=== PATIENT | male | born 1930 | race Caucasian/White ===

== ENCOUNTER 2019-08-19 09:40 | Inpatient (IN) | payer OTHER ==
[~2019-08-19] VITALS: Ht 175.3 cm; Wt 81.9 kg
[2019-08-19 10:31] LABS: Eosinophils # (auto) 0 uL; Eosinophils % (auto) 0.1 % (0.0-7.0); Red Blood Cells 3.31 10^6/uL (4.5-5.90); Red Cell Distribution Width 16.5 % (11.8-14.3); White Blood Cell 11.8 10^3/uL (4.4-10.8)
[2019-08-19 10:32] LABS: Basophils # (auto) 0.1 uL; Basophils % (auto) 0.6 % (0.0-2.0); Hematocrit 34.4 % (41.0-53.0); Hemoglobin 11.7 g/dL (13.5-17.5); Lymphocytes # (auto) 0.4 uL; Mean Corpuscular Hemoglobin 35.2 pg (28.0-32.0); Mean Corpuscular Hgb Conc. 33.9 g/dL (32.0-36.0); Mean Corpuscular Volume 103.7 fL (80.0-100.0); Monocytes # (auto) 0.5 uL; Monocytes % (auto) 4.1 % (0.0-12.0); Neutrophils # (auto) 10.9 uL; Neutrophils % (auto) 92.2 % (37.0-80.0); Platelet Count (auto) 111 10^3/uL (140-450)
[2019-08-19 10:48] LABS: INR 1.82 (0.9-1.15); Partial Thromboplastin Time 33.9 sec (23.64-32.05)
[2019-08-19 10:54] LABS: Albumin 3.6 g/dL (3.4-5.0); BUN/Creatinine Ratio 18.1; Calcium 9.6 mg/dL (8.5-10.1); Potassium 4.5 mmol/L (3.5-5.1)
[2019-08-19 10:56] LABS: Total Protein 6.7 g/dL (6.4-8.2)
[2019-08-19 11:30] LABS: CRP High Sensitivity 0.466 mg/dL (< 0.3)
[2019-08-19] MEDS ORDERED: POTASSIUM (15:04)
[2019-08-19] MEDS ORDERED: ALLO300T2 (15:04)
[2019-08-19] MEDS ORDERED: SIMV-13 (15:04)
[2019-08-19] MEDS ORDERED: WARF4TAB33 (15:04)
[2019-08-19] MEDS ORDERED: IRBE300T46 (15:04)
[2019-08-19] MEDS ORDERED: BUME1TAB3 (15:04)
[2019-08-19] MEDS ORDERED: LEVO25TA49 (15:04)
[2019-08-19 15:37] LABS: Urine Bacteria NONE SEEN /hpf (None Seen); Urine Blood TRACE /uL (Negative); Urine Hyaline Cast FEW /lpf (0 - 2); Urine Mucus FEW (None Seen); Urine Specific Gravity 1.019 (1.001-1.035); Urine WBC 7 /hpf (0 - 3)
[2019-08-19] MEDS ORDERED: hydrALAZINE HCL 20 MG/ML VL IV PRN (16:15)
[2019-08-19] MEDS ORDERED: ACETAMINOPHEN 500 MG TAB PO PRN (16:15)
[2019-08-19] MEDS ORDERED: HYDROcodone-ACET 5/325MG TAB PO PRN (16:15)
[2019-08-19] MEDS ORDERED: NITROGLYCERIN 0.4 MG SL TAB SL PRN (16:15)
[2019-08-19] MEDS ORDERED: ONDANSETRON HCL 4 MG/2 ML VIAL IV PRN (16:15)
[2019-08-19] MEDS ORDERED: MORPHINE SULF INJ 2 MG/ML SYRINGE 1ML IV PRN (16:15)
[2019-08-19] MEDS ORDERED: LORazepam 2MG/ML-1ML VIAL IV ONE (16:45)
[2019-08-19] MEDS ORDERED: LORazepam 2MG/ML-1ML VIAL ONE (16:45)
[2019-08-19] MEDS ORDERED: BUMETANIDE 1mg/4ml VIAL (0.25mg/ml) IV SCH (18:00)
[2019-08-19] MEDS ORDERED: HALOPERIDOL LACTATE 5 MG/ML INJ VIAL IM ONE (20:00)
[2019-08-19] MEDS: DOCUSATE SOD 100 MG CAP PO SCH (23:13)
[2019-08-19] MEDS: ATORVASTATIN 20 MG TAB PO SCH (23:14)
[2019-08-19] MEDS: CARVEDILOL 3.125 MG TAB PO SCH (23:14)
[2019-08-20 06:11] LABS: Basophils # (auto) 0 uL; Basophils % (auto) 0.3 % (0.0-2.0); Eosinophils # (auto) 0.2 uL; Hemoglobin 11.1 g/dL (13.5-17.5); Lymphocytes # (auto) 0.9 uL; Monocytes # (auto) 0.8 uL
[2019-08-20 06:13] LABS: Eosinophils % (auto) 2.7 % (0.0-7.0); Hematocrit 31.7 % (41.0-53.0); Lymphocytes % (auto) 9.2 % (10.0-50.0); Mean Corpuscular Hemoglobin 36.1 pg (28.0-32.0); Mean Corpuscular Volume 103.2 fL (80.0-100.0); Monocytes % (auto) 8.4 % (0.0-12.0); Neutrophils # (auto) 7.4 uL; Neutrophils % (auto) 79.4 % (37.0-80.0); Platelet Count (auto) 99 10^3/uL (140-450); Red Blood Cells 3.07 10^6/uL (4.5-5.90); Red Cell Distribution Width 16.5 % (11.8-14.3); White Blood Cell 9.4 10^3/uL (4.4-10.8)
[2019-08-20 06:25] LABS: Potassium 4.1 mmol/L (3.5-5.1)
[2019-08-20 06:31] LABS: BUN/Creatinine Ratio 18.3; Calcium 9.6 mg/dL (8.5-10.1)
[2019-08-20] MEDS ORDERED: BUMETANIDE 2.5mg/10ml (0.25 mg/ml) INJ IV ONE (07:15)
[2019-08-20 09:00] VITALS: BP 152/85
[2019-08-20] MEDS ORDERED: ENOXAPARIN SOD 40 MG/0.4 ML SYRINGE SC ONE (11:15)
[2019-08-20] MEDS: LEVOTHYROXINE SODIUM 25 MCG TAB PO SCH (11:36)
[2019-08-20] MEDS: ALLOPURINOL 300 MG TAB PO SCH (11:36)
[2019-08-20] MEDS: CARVEDILOL 3.125 MG TAB PO SCH ×2 (11:36→22:47)
[2019-08-20] MEDS: ASPirin-EC 81 mg tab PO SCH (11:37)
[2019-08-20] MEDS: BENAZEPRIL HCL 10 MG TAB PO SCH (11:37)
[2019-08-20] MEDS: DOCUSATE SOD 100 MG CAP PO SCH ×2 (11:37→22:47)
[2019-08-20 13:00] VITALS: BP 91/56
[2019-08-20 17:00] VITALS: BP 139/79
[2019-08-20 22:00] VITALS: BP 142/82
[2019-08-20] MEDS: ATORVASTATIN 20 MG TAB PO SCH (22:48)
[2019-08-21 06:10] VITALS: BP 121/56
[2019-08-21] MEDS: LEVOTHYROXINE SODIUM 25 MCG TAB PO SCH (06:30)
[2019-08-21 08:00] VITALS: BP 133/76
[2019-08-21 09:00] VITALS: BP 133/76
[2019-08-21] MEDS: DOCUSATE SOD 100 MG CAP PO SCH ×2 (10:50→21:36)
[2019-08-21] MEDS: CARVEDILOL 3.125 MG TAB PO SCH ×2 (10:51→21:37)
[2019-08-21] MEDS: ASPirin-EC 81 mg tab PO SCH (10:51)
[2019-08-21] MEDS: BENAZEPRIL HCL 10 MG TAB PO SCH (10:52)
[2019-08-21] MEDS: ALLOPURINOL 300 MG TAB PO SCH (10:52)
[2019-08-21] MEDS: ENOXAPARIN SOD 40 MG/0.4 ML SYRINGE SC SCH (10:53)
[2019-08-21 13:00] VITALS: BP 125/62
[2019-08-21 17:00] VITALS: BP 130/70
[2019-08-21] MEDS: FUROSEMIDE 20 MG/2 ML VIAL IV SCH (18:08)
--- NOTE | 2019-08-21 19:40 | NUR ---
OPENING SHIFT NOTE RECEIVED REPORT FROM DAYSHIFT RN. PATIENT LYING IN BED WATCHING TELEVISION. SITTER AT BEDSIDE FOR SAFETY. NO S/S OF DISTRESS OR SOB. NO PAIN NOTED OR REPORTED. PATIENT A/O X3, BEDREST. BED LOCKED IN LOW POSITION, CALL LIGHT WITHIN REACH, WILL CONTINUE TO MONITOR PATIENT Q1HR AND PRN.
[2019-08-21] MEDS: ATORVASTATIN 20 MG TAB PO SCH (21:37)
[2019-08-21 22:00] VITALS: BP 113/61
[2019-08-22 05:00] VITALS: BP 143/81
[2019-08-22] MEDS: FUROSEMIDE 20 MG/2 ML VIAL IV SCH ×2 (05:38→17:40)
[2019-08-22] MEDS: LEVOTHYROXINE SODIUM 25 MCG TAB PO SCH (06:44)
[2019-08-22 06:46] LABS: Hemoglobin 11.8 g/dL (13.5-17.5); Mean Corpuscular Hgb Conc. 34.7 g/dL (32.0-36.0); Red Blood Cells 3.34 10^6/uL (4.5-5.90)
[2019-08-22 06:49] LABS: Basophils # (auto) 0.1 uL; Basophils % (auto) 0.9 % (0.0-2.0); Eosinophils # (auto) 0.3 uL; Eosinophils % (auto) 4.6 % (0.0-7.0); Hematocrit 34.1 % (41.0-53.0); Lymphocytes # (auto) 1.1 uL; Lymphocytes % (auto) 17.5 % (10.0-50.0); Mean Corpuscular Hemoglobin 35.4 pg (28.0-32.0); Monocytes # (auto) 0.4 uL; Monocytes % (auto) 6.9 % (0.0-12.0); Neutrophils # (auto) 4.4 uL; Neutrophils % (auto) 70.1 % (37.0-80.0); Nucleated Red Blood Cells % 0.1 %; Platelet Count (auto) 104 10^3/uL (140-450); Red Cell Distribution Width 15.8 % (11.8-14.3); White Blood Cell 6.3 10^3/uL (4.4-10.8)
[2019-08-22 06:58] LABS: INR 1.48 (0.9-1.15); Partial Thromboplastin Time 33.5 sec (23.64-32.05)
[2019-08-22 07:00] LABS: Potassium 3.8 mmol/L (3.5-5.1)
[2019-08-22 07:07] LABS: BUN/Creatinine Ratio 28.7; Calcium 9.2 mg/dL (8.5-10.1)
--- NOTE | 2019-08-22 07:16 | NUR ---
CRITICAL VALUE OF WBC 52.2 REPORTED TO QAMAR MACIEL. POSITIVE BLOOD CULTURES REPORTED TO RAHEEM ON PRIOR SHIFT WITH RESULTING ORDER OF VANCOMYCIN PER PHARMACY TO DOSE. Addendum: 08/22/19 at 1120 by BENJAMIN BROWN RN INACCURATE CRITICAL VALUE REPORT FROM LAB.
[2019-08-22 08:00] VITALS: BP 130/65
[2019-08-22] MEDS ORDERED: VANCOMYCIN PER PHARMACY 0 MG IV SCH (08:00)
[2019-08-22 08:32] VITALS: BP 130/65
[2019-08-22] MEDS: ASPirin-EC 81 mg tab PO SCH (09:58)
[2019-08-22] MEDS: DOCUSATE SOD 100 MG CAP PO SCH ×2 (09:59→21:35)
[2019-08-22] MEDS: CARVEDILOL 3.125 MG TAB PO SCH ×2 (09:59→21:23)
[2019-08-22] MEDS: ALLOPURINOL 300 MG TAB PO SCH (09:59)
[2019-08-22] MEDS: BENAZEPRIL HCL 10 MG TAB PO SCH (10:00)
[2019-08-22] MEDS: ENOXAPARIN SOD 40 MG/0.4 ML SYRINGE SC SCH (10:00)
[2019-08-22] MEDS: VANCOMYCIN 1GM/250ML 250 ML IV SCH (10:05)
--- NOTE | 2019-08-22 11:09 | NUR ---
ADDITIONAL CONTACT (PRASAD RUIZ)
[2019-08-22 13:00] VITALS: BP 125/72
--- NOTE | 2019-08-22 16:55 | NUR ---
Discharge planning per SS consult, patient has orders for SNF placement. Placed a call to [facility], spoke with Mary, and she advised she would send me a list of contracted facilities. I called the listed facilities and was advised that none of them were contracted. Placed a call to his POA Patel Rodriguez, and left a message for a return call. he called back and will follow up with me tomorrow with his plan post dc.
[2019-08-22 17:00] VITALS: BP 128/79
[2019-08-22] MEDS: WARFARIN SODIUM 2 MG TAB PO SCH (17:41)
--- NOTE | 2019-08-22 19:40 | NUR ---
OPENING SHIFT NOTE RECEIVED REPORT FROM DAYSHIFT RN. PATIENT LYING IN BED WITH EYES CLOSED. SITTER AT BEDSIDE FOR SAFETY. NO S/S OF DISTRESS OR SOB. NO PAIN NOTED OR REPORTED. PATIENT A/O X2, BEDREST. BED LOCKED IN LOW POSITION, CALL LIGHT WITHIN REACH, WILL CONTINUE TO MONITOR PATIENT Q1HR AND PRN.
[2019-08-22 21:30] VITALS: BP 93/51
[2019-08-22] MEDS: ATORVASTATIN 20 MG TAB PO SCH (21:36)
[2019-08-23] MEDS: VANCOMYCIN 1GM/250ML 250 ML IV SCH ×2 (02:54→21:00)
[2019-08-23 05:14] VITALS: BP 96/51
--- NOTE | 2019-08-23 05:30 | NUR ---
SPOKE WITH HOSPITALIST UPDATED PIN DRAFTING MACHINE OPERATOR RAJEEV ON PATIENT STATUS AND DECREASED BLOOD PRESSURE. ORDERS TO HOLD BENAZEPRIL AND CONTINUE TO ADMINISTER COREG. WILL ENDORSE TO ARLEEN RN,
[2019-08-23] MEDS: FUROSEMIDE 20 MG/2 ML VIAL IV SCH (05:53)
[2019-08-23] MEDS: LEVOTHYROXINE SODIUM 25 MCG TAB PO SCH (05:57)
[2019-08-23 08:00] VITALS: BP 106/66
[2019-08-23] MEDS: BENAZEPRIL HCL 10 MG TAB PO SCH (09:22)
[2019-08-23] MEDS: DOCUSATE SOD 100 MG CAP PO SCH ×2 (09:33→23:14)
[2019-08-23] MEDS: CARVEDILOL 3.125 MG TAB PO SCH (09:34)
[2019-08-23] MEDS: ALLOPURINOL 300 MG TAB PO SCH (09:34)
[2019-08-23] MEDS: ASPirin-EC 81 mg tab PO SCH (09:34)
[2019-08-23 10:42] LABS: INR 1.51 (0.9-1.15); Partial Thromboplastin Time 34.9 sec (23.64-32.05)
[2019-08-23] MEDS ORDERED: SODIUM CHLORIDE 0.9% 250 ML IV ONE (12:00)
[2019-08-23] MEDS ORDERED: SODIUM CHLORIDE 0.9% 1,000 ML IV SCH (12:00)
[2019-08-23 13:00] VITALS: BP 77/51
--- NOTE | 2019-08-23 15:54 | NUR ---
assessment Patient is a 88 year old male who is not answering correctly. Per patients radha Sweeney prior to admission patient did live home alone and was independent. Per Patel the last time he came to visit was 4 weeks ago. Patel lives in [place] and comes out often to see patient. Patel is patients POA. Patel and patient have been planning for patient to move to [place] soon. Per Patel this is new confusion for patient. Per Patel patients PCP is Dr Faulkner. Per Patel patient has no need for DME. Per Patel he agrees to patient going to rehab on discharge. Patients post discharge plan after SNF is to return home with Patel. Patel verbalized understanding and agreed to discharge plan to SNF. Addendum: 08/23/19 at 1559 by Gaby LUCIANO Amended: Links added.
[2019-08-23 17:00] VITALS: BP 105/63
[2019-08-23] MEDS: WARFARIN SODIUM 2 MG TAB PO SCH (17:03)
--- NOTE | 2019-08-23 19:30 | NUR ---
Opening Shift Note Pt is resting in bed with resp rate even and unlabored. No s/s of any distress noted at this time. Sitter at bedside 1:1 care for pt safety. POC discussed with pt and pt verbalizes understanding. Bed is low, wheels are locked, and call light is with in reach. Bed alarm is set.
[2019-08-23 21:00] VITALS: BP 121/73
[2019-08-23] MEDS: ATORVASTATIN 20 MG TAB PO SCH (23:14)
[2019-08-24 05:00] VITALS: BP 128/77
[2019-08-24] MEDS: LEVOTHYROXINE SODIUM 25 MCG TAB PO SCH (06:34)
[2019-08-24 07:17] LABS: Basophils # (auto) 0 uL; Mean Corpuscular Hgb Conc. 34.2 g/dL (32.0-36.0); Monocytes # (auto) 0.7 uL
[2019-08-24 07:19] LABS: Basophils % (auto) 0.3 % (0.0-2.0); Eosinophils # (auto) 0.4 uL; Eosinophils % (auto) 5.3 % (0.0-7.0); Hematocrit 34.3 % (41.0-53.0); Hemoglobin 11.7 g/dL (13.5-17.5); Lymphocytes % (auto) 14.8 % (10.0-50.0); Mean Corpuscular Hemoglobin 35.5 pg (28.0-32.0); Mean Corpuscular Volume 103.6 fL (80.0-100.0); Monocytes % (auto) 10.4 % (0.0-12.0); Neutrophils # (auto) 4.9 uL; Neutrophils % (auto) 69.2 % (37.0-80.0); Nucleated Red Blood Cells % 0.1 %; Platelet Count (auto) 101 10^3/uL (140-450); Red Blood Cells 3.31 10^6/uL (4.5-5.90); Red Cell Distribution Width 16.1 % (11.8-14.3)
[2019-08-24 07:28] LABS: BUN/Creatinine Ratio 31.9; Calcium 9.2 mg/dL (8.5-10.1); Potassium 3.7 mmol/L (3.5-5.1)
--- NOTE | 2019-08-24 07:40 | NUR ---
Opening Note Received report from military administrative technician RN. Patient is awake, alert and oriented x1. Patient states he does not know where he is at or why he is here. Patient is on room air, respirations even and unlabored. Patient denies pain at this time. Reviewed plan of care with patient. Bed in low and locked position, call light within reach. Will continue to monitor Q1 hour and PRN. Sitter at bedside for safety.
[2019-08-24 09:00] VITALS: BP 150/72
[2019-08-24] MEDS: ALLOPURINOL 300 MG TAB PO SCH (09:44)
[2019-08-24] MEDS: ASPirin-EC 81 mg tab PO SCH (09:44)
[2019-08-24] MEDS: DOCUSATE SOD 100 MG CAP PO SCH ×2 (09:45→23:35)
[2019-08-24] MEDS ORDERED: ENOXAPARIN SOD 40 MG/0.4 ML SYRINGE SC SCH (10:00)
--- NOTE | 2019-08-24 11:20 | NUR ---
at bedside Updating patient on plan of care. States patient is to be transferred to higher level of care. Will continue to monitor.
[2019-08-24 12:40] VITALS: BP 139/60
--- NOTE | 2019-08-24 13:04 | NUR ---
Dr. Dang at bedside Updating patient on plan of care. Patient to be discharged to SNF. Will continue to monitor Q1 hour and PRN.
[2019-08-24 14:15] LABS: INR 1.48 (0.9-1.15)
--- NOTE | 2019-08-24 15:00 | NUR ---
Visitors at bedside Provided contact information. [facility] . States they would like to be contacted when patient is to be transferred.
[2019-08-24] MEDS ORDERED: WARFARIN SODIUM 5 MG TAB PO ONE (17:00)
--- NOTE | 2019-08-24 17:59 | NUR ---
Discharge planning per SS consult, patient has orders to dc to SNF. Referral sent to multiple facilities since 08.22.19, and most were coming back as non contracted even the ones the health plan had provided. Spoke with Lorri Lacey [phone] today, and was provided additional facilities. Referral faxed to [facility] at [phone], placed a follow up call, spoke with Purvi and was advised they can accept patient, but does not have a bed today, but is also pending a discharge and anticipates to have a bed possibly Sat 10.5 or Sun 10.6. I will be restaurant front manager for assistance regarding transfer if bed is available over the weekend. Please have me paged. Placed a follow up call to his grandson Patel Rodriguez, and advised him of the dc plan, he verbalized understanding, and wants to transition this patient to [place] after dc from SNF stay.
--- NOTE | 2019-08-24 19:20 | NUR ---
Closing Note Report given to skid machine operator RN. No signs or symptoms of distress noted at this time. Sitter at bedside for safety.
[2019-08-24 21:51] VITALS: BP 152/71
[2019-08-24] MEDS: ATORVASTATIN 20 MG TAB PO SCH (23:35)
[2019-08-25 05:05] VITALS: BP 136/70
[2019-08-25 06:22] LABS: INR 1.61 (0.9-1.15)
[2019-08-25] MEDS: LEVOTHYROXINE SODIUM 25 MCG TAB PO SCH (07:07)
--- NOTE | 2019-08-25 07:40 | NUR ---
Opening Note Received report from night order selector RN. Patient is awake, alert and oriented x1. Patient is on room air, respirations even and unlabored. Patient denies pain at this time. Reviewed plan of care with patient. Bed in low and locked position, call light within reach. Will continue to monitor Q1 hour and PRN. Sitter at bedside for safety.
[2019-08-25] MEDS: ALLOPURINOL 300 MG TAB PO SCH (09:00)
[2019-08-25] MEDS: DOCUSATE SOD 100 MG CAP PO SCH ×2 (09:00→23:16)
[2019-08-25] MEDS: ASPirin-EC 81 mg tab PO SCH (09:01)
--- NOTE | 2019-08-25 09:06 | NUR ---
Wound photo taken Patient has blister, erythema and scratch to left hip. Photo taken for reference. Will continue to monitor Q1 hour and PRN.
--- NOTE | 2019-08-25 09:40 | NUR ---
Physical Therapy Patient ambulated with PT around unit. Patient back to bed, tolerated well. Will continue to monitor Q1 hour and PRN.
[2019-08-25 13:00] VITALS: BP 140/80
--- NOTE | 2019-08-25 15:21 | NUR ---
Nutrition Follow-up Notes Wt.: 83.3 kg as of yesterday. Pt's with PT and sitter at bedside at bedside during rounds this morning. Pt's no signs of distress noted earlier, currently on Cardiac: 2 gms Na, Low Chol, Low Fat diet, no record of food intake in last 2 days, however pt tolerates oral diet and eating well, per sitter. Est. Needs : 1650 to 2100 kcal (20-25 kcal/kgBW), 66 to 8 gms pro (0.8-1.0 gm/kgBW). Will continue to monitor pertinent labs and reassess nutrient need prn Labs: No new labs today; 08/24/19 Gluc 108 H, BUN 38 H; Trop I 0.257 H Skin: Dakota scale17, mod risk, skin intact per clicker operator. GI: Pt had 1 BM 08/20/19 per clicker operator. PES: Altered nutrition related lab values r/t current/chronic medical condition aeb hyperglycemia, elev. BUN and Trop I levels. Will continue to monitor PO intake, skin status, pertinent labs and weight trend. F/u in 3 to 5 days. Rec.: 1.) Continue close supervision and feeding assistance prn during meals. 2.) Consider regular monitoring and recording of pt's food intake in [employer]. 3.) Refer pt to RD for further nutrition education and weight monitoring upon discharge. 4.) Continue current plan of care.
[2019-08-25 17:00] VITALS: BP 185/91
[2019-08-25] MEDS ORDERED: WARFARIN SODIUM 5 MG TAB PO ONE (17:00)
--- NOTE | 2019-08-25 19:31 | NUR ---
Closing Note Report given to night club manager RN. No signs or symptoms of distress noted at this time. Sitter at bedside for safety
[2019-08-25 21:43] VITALS: BP 127/73
[2019-08-25] MEDS: ATORVASTATIN 20 MG TAB PO SCH (23:16)
[2019-08-26 04:55] VITALS: BP 150/84
--- NOTE | 2019-08-26 04:57 | NUR ---
Continuation of Care Assumed care of patient, eyes closed, respirations even and unlabored, appears asleep. Bed in lowest locked position, side rails up x2, call light within reach, sitter at bedside. No S/S of distress/SOB or pain. Instructed on POC and to call for assist PRN, will continue to monitor for changes Q1hr and PRN.
--- NOTE | 2019-08-26 05:00 | NUR ---
Endorsed care of pt to Anusha KELLER.
[2019-08-26 06:22] LABS: INR 1.89 (0.9-1.15)
--- NOTE | 2019-08-26 06:30 | NUR ---
Hypertension Blood pressure 150/84, will administer Hydralazine as ordered and continue to monitor patient.
[2019-08-26] MEDS: LEVOTHYROXINE SODIUM 25 MCG TAB PO SCH (06:35)
--- NOTE | 2019-08-26 07:05 | NUR ---
Closing Note Patient lying in bed, eyes closed, respirations even and unlabored, appears asleep, but awakens to name and touch. Bed in lowest locked position, side rails up x2, call light within reach, sitter at bedside. No s/s of distress. Dayshift RN made aware of patient's hypertension and care endorsed.
--- NOTE | 2019-08-26 07:30 | NUR ---
Opening Shift Note RECEIVED REPORT FROM NOC RN. Assumed care of patient, ASLEEP. No S/S of distress/SOB or pain. BED IN LOWEST, LOCKED POSITION WITH SIDERAILS UP x2 AND CALL LIGHT WITHIN REACH AND SITTER AT BEDSIDE. Will continue to monitor for changes Q1hr and PRN.
[2019-08-26 08:15] VITALS: BP 134/84
[2019-08-26 09:00] VITALS: BP 134/81
[2019-08-26] MEDS: DOCUSATE SOD 100 MG CAP PO SCH ×2 (11:00→22:11)
[2019-08-26] MEDS: ALLOPURINOL 300 MG TAB PO SCH (11:01)
[2019-08-26] MEDS: ASPirin-EC 81 mg tab PO SCH (11:01)
--- NOTE | 2019-08-26 12:00 | NUR ---
Yip catheter dc'd Order to discontinue yip catheter. Yip dc'd with clean technique following deflation of balloon. Patient tolerated well with no complaints of pain. Continue care.
[2019-08-26 13:00] VITALS: BP 118/68
[2019-08-26 17:00] VITALS: BP 147/83
[2019-08-26] MEDS ORDERED: WARFARIN SODIUM 1 MG TAB PO ONE (17:00)
--- NOTE | 2019-08-26 19:50 | NUR ---
Opening Shift Note Assumed care of patient, asleep. No S/S of distress/SOB or pain. Sitter at bedside. Bed in lowest locked position, side rails up x2, call light within reach. Will continue to monitor for changes Q1hr and PRN.
[2019-08-26 22:00] VITALS: BP 148/71
[2019-08-26] MEDS: ATORVASTATIN 20 MG TAB PO SCH (22:12)
[2019-08-27 05:00] VITALS: BP 149/90
[2019-08-27 05:30] LABS: INR 2.05 (0.9-1.15); Partial Thromboplastin Time 34.1 sec (23.64-32.05)
[2019-08-27] MEDS: LEVOTHYROXINE SODIUM 25 MCG TAB PO SCH (06:31)
--- NOTE | 2019-08-27 07:30 | NUR ---
Opening Shift Note RECEIVED REPORT FROM NOC RN. Assumed care of patient, awake and alert. No S/S of distress/SOB or pain. BED IN LOWEST, LOCKED POSITION WITH SIDERAILS UP x2 AND CALL LIGHT WITHIN REACH AND SITTER AT BEDSIDE. Instructed on POC and to call for assist PRN, will continue to monitor for changes Q1hr and PRN.
[2019-08-27 08:15] VITALS: BP 132/61
[2019-08-27 09:00] VITALS: BP 132/61
[2019-08-27] MEDS: DOCUSATE SOD 100 MG CAP PO SCH ×2 (10:11→22:14)
[2019-08-27] MEDS: ALLOPURINOL 300 MG TAB PO SCH (10:11)
[2019-08-27] MEDS: ASPirin-EC 81 mg tab PO SCH (10:12)
[2019-08-27 13:00] VITALS: BP 166/93
--- NOTE | 2019-08-27 16:43 | NUR ---
Discharge planning per SS consult. Patient has orders to dc to SNF. Referral faxed to 7 different SNF's [facility]. received a call from [facility] rep Ana Maria was was advised they will accept this patient. Gave her the number for Vishnu to receive a pre [phone]. She faxed the referral and was advised by the [employer] rep that it is under review with the biomedical specialist and they anticipate and answer tomorrow 10.8.19. I also have [facility] and possibly [facility] as a second and third back up.
[2019-08-27 17:00] VITALS: BP 148/60
[2019-08-27] MEDS ORDERED: WARFARIN SODIUM 2 MG TAB PO ONE (17:00)
--- NOTE | 2019-08-27 19:50 | NUR ---
Opening Shift Note Assumed care of patient, alert and oriented x3. On room air and min assist to bathroom. No S/S of distress/SOB or pain. Sitter at bedside. Bed in lowest locked position, side rails up x2, call light within reach. Instructed on POC and to call for assist PRN, will continue to monitor for changes Q1hr and PRN.
[2019-08-27 20:00] VITALS: BP 155/83
[2019-08-27] MEDS: ATORVASTATIN 20 MG TAB PO SCH (22:14)
[2019-08-28 04:00] VITALS: BP 149/100
[2019-08-28] MEDS: LORazepam 2MG/ML-1ML VIAL IV PRN (05:31)
[2019-08-28 06:00] LABS: INR 2.34 (0.9-1.15); Partial Thromboplastin Time 35.9 sec (23.64-32.05)
[2019-08-28] MEDS: LEVOTHYROXINE SODIUM 25 MCG TAB PO SCH (07:00)
--- NOTE | 2019-08-28 07:55 | NUR ---
Opening Note Assumed care of patient, he is A & O x2, does not know where he is or how he got here. Patient is awake and talkative. Sitter at bedside. Patient is comfortable at this time. Minimum assist to use the bedside commode. Bed is in low, locked position, call light within reach, bed alarm on. POC discussed, will continue to monitor Q1h and PRN.
[2019-08-28 09:00] VITALS: BP 140/72
[2019-08-28] MEDS: ASPirin-EC 81 mg tab PO SCH (09:27)
[2019-08-28] MEDS: ALLOPURINOL 300 MG TAB PO SCH (09:27)
[2019-08-28] MEDS: DOCUSATE SOD 100 MG CAP PO SCH ×2 (09:27→21:31)
--- NOTE | 2019-08-28 11:54 | NUR ---
Nutrition Follow-up Notes Wt.: 79.2 kg Pt's sleeping and sitter at bedside at bedside during rounds this morning. Pt's no signs of distress noted earlier, currently on Cardiac: 2 gms Na, Low Chol, Low Fat diet, with inadeiqte PO of < 50% x 4 per RN doc Est. Needs : 1650 to 2100 kcal (20-25 kcal/kgBW), 66 to 8 gms pro (0.8-1.0 gm/kgBW). Will continue to monitor pertinent labs and reassess nutrient need prn Labs: BUN 38 H, GLU 108 H, Skin: Dakota scale 17, mod risk, skin intact per planer hand. GI: Pt had 1 BM 08/20/19 per planer hand. PES: Altered nutrition related lab values r/t current/chronic medical condition aeb hyperglycemia, elev. BUN and Trop I levels. Will continue to monitor PO intake, skin status, pertinent labs and weight trend. F/u in 3 to 5 days. Rec.: 1.) Continue close supervision and feeding assistance prn during meals. 2.) Consider ensure Enlive 1 carton bid if PO continues to be low. 3.) Refer pt to RD for further nutrition education and weight monitoring upon discharge. 4.) Continue current plan of care.
--- NOTE | 2019-08-28 13:04 | NUR ---
Dr. Dang at bedside Spoke to friends and family at bedside.
[2019-08-28] MEDS ORDERED: WARFARIN SODIUM 2 MG TAB PO ONE (17:00)
[2019-08-28 17:27] VITALS: BP 136/79
--- NOTE | 2019-08-28 19:15 | NUR ---
Opening Shift Note Received report from carrington Elizondo RN. Assumed care of patient, awake and alert. No S/S of distress/SOB or pain. Sitter at bedside. Instructed on POC and to call for assist PRN, will continue to monitor for changes Q1hr and PRN. Bed placed in lowest position, bed alarm turned on and call light within reach.
[2019-08-28 20:00] VITALS: BP 139/79
[2019-08-28] MEDS: ATORVASTATIN 20 MG TAB PO SCH (21:31)
[2019-08-28 22:00] VITALS: BP 139/79
[2019-08-29] MEDS: LORazepam 2MG/ML-1ML VIAL IV PRN
[2019-08-29 05:00] VITALS: BP 139/82
--- NOTE | 2019-08-29 05:00 | NUR ---
IV insertion IV access obtained, via clean sterile technique by inserting 22 gauge catheter at left hand after first attempt. IV secured properly. No trauma to site. Patient tolerated well.
[2019-08-29] MEDS: LEVOTHYROXINE SODIUM 25 MCG TAB PO SCH (06:17)
--- NOTE | 2019-08-29 07:05 | NUR ---
ROUNDS PATIENT IS RESTING IN BED WITH EYES CLOSED, NO DISTRESS NOTED AND PATIENT DENIES PAIN AT THIS TIME.
[2019-08-29 07:44] LABS: Basophils # (auto) 0.1 uL; Basophils % (auto) 1.1 % (0.0-2.0); Eosinophils # (auto) 0.2 uL; Eosinophils % (auto) 3.9 % (0.0-7.0); Hematocrit 33.9 % (41.0-53.0); Hemoglobin 11.5 g/dL (13.5-17.5); Lymphocytes # (auto) 1.2 uL; Lymphocytes % (auto) 20.9 % (10.0-50.0); Mean Corpuscular Hemoglobin 35.1 pg (28.0-32.0); Mean Corpuscular Volume 103.2 fL (80.0-100.0); Monocytes # (auto) 0.4 uL; Monocytes % (auto) 7.5 % (0.0-12.0); Neutrophils # (auto) 3.9 uL; Neutrophils % (auto) 66.6 % (37.0-80.0); Platelet Count (auto) 112 10^3/uL (140-450); Red Blood Cells 3.29 10^6/uL (4.5-5.90); Red Cell Distribution Width 16.3 % (11.8-14.3); White Blood Cell 5.8 10^3/uL (4.4-10.8)
--- NOTE | 2019-08-29 07:45 | NUR ---
IV removal Old IV DC'd with sterile technique, catheter fully intact. Pressure dressing applied to site. Patient tolerated procedure well.
--- NOTE | 2019-08-29 07:55 | NUR ---
Opening Shift Note Assumed care of patient, awake and alert. No S/S of distress/SOB or pain. Instructed on POC and to call for assist PRN, will continue to monitor for changes Q1hr and PRN.
[2019-08-29 07:56] LABS: INR 2.57 (0.9-1.15); Partial Thromboplastin Time 36.7 sec (23.64-32.05)
[2019-08-29 09:00] VITALS: BP 129/70
[2019-08-29] MEDS: DOCUSATE SOD 100 MG CAP PO SCH (09:32)
[2019-08-29] MEDS: ASPirin-EC 81 mg tab PO SCH (09:32)
[2019-08-29] MEDS: ALLOPURINOL 300 MG TAB PO SCH (09:33)
[2019-08-29 11:49] LABS: Basophils % (auto) 0.8 % (0.0-2.0); Hemoglobin 12.1 g/dL (13.5-17.5); Lymphocytes # (auto) 1.1 uL; Monocytes # (auto) 0.5 uL; Neutrophils # (auto) 4.7 uL
[2019-08-29 11:51] LABS: Basophils # (auto) 0.1 uL; Eosinophils # (auto) 0.2 uL; Eosinophils % (auto) 3.6 % (0.0-7.0); Hematocrit 35.6 % (41.0-53.0); Lymphocytes % (auto) 16.1 % (10.0-50.0); Mean Corpuscular Hgb Conc. 33.9 g/dL (32.0-36.0); Mean Corpuscular Volume 103.3 fL (80.0-100.0); Monocytes % (auto) 7.9 % (0.0-12.0); Neutrophils % (auto) 71.6 % (37.0-80.0); Nucleated Red Blood Cells % 0.1 %; Platelet Count (auto) 130 10^3/uL (140-450); Red Blood Cells 3.45 10^6/uL (4.5-5.90); Red Cell Distribution Width 16.4 % (11.8-14.3); White Blood Cell 6.5 10^3/uL (4.4-10.8)
[2019-08-29 12:07] LABS: BUN/Creatinine Ratio 20.6; Calcium 9.4 mg/dL (8.5-10.1); Potassium 4.3 mmol/L (3.5-5.1)
[2019-08-29 13:00] VITALS: BP 124/53
--- NOTE | 2019-08-29 14:52 | NUR ---
report given to chief maintenance supervisor juany at [facility] [phone] pt filler picker at 1530 by [facility]
--- NOTE | 2019-08-29 15:29 | NUR ---
PT LEFT WITH [facility]
--- NOTE | 2019-08-29 16:18 | NUR ---
Discharge planning per SS consult, patient has orders to dc to SNF. Referral faxed, patient was accepted at [facility] in [place], [place] into room [address] Blaine Benjamin. Auth was provided by Vishnu Douglas-[id number]. PRACHI yesterday 08.28.19 gave auth for additional stay from 08-26-08.29.19 [id number]. Facility rep Ana Maria called to advised that the patient has a 10% co-pay and that their daily fee is $300 and he would need to pay at least 7 days in advanceof approximately $210. I advised I would notify his grandson. I placed a call to his grandson SIMI Rodriguez, and advised him of the co-pay and provided him the information to call the facility for payment, he said it would be no problem. Ana Maria called back to advise that patient grandson was on the phone with the business office securing payment. Grandreagan lives in [facility]. and advised he would be here on Sat to sort some affairs for his grandfather as he is anticipating to to take him back to live with him once he is medically cleared. Transportation was arranged with [facility] and they came to pick the patient up at 3:30 which was the scheduled time for picking machine operator helper. Nurse Dodge was advised of the dc plan as well as the grandson. Addendum: 08/29/19 at 1631 by ANTHONY KELLY Amended: Links added.
[2019-08-29] MEDS ORDERED: WARFARIN SODIUM 2 MG TAB PO ONE (17:00)
== END 2019-08-29 15:30 | DRG 871 ==
LOC: ER 09:45 → TELE 09:46 → TELE-WESTW 08-20 08:36
PROVIDERS: ADMIT Nurse Practitioner Acute Care; ATTEND Internal Medicine Nephrology
DX: A41.9 Sepsis, unspecified organism (principal); G93.41 Metabolic encephalopathy; I21.4 Non-ST elevation (NSTEMI) myocardial infarction; I50.33 Acute on chronic diastolic (congestive) heart failure; M62.82 Rhabdomyolysis; I13.0 Hypertensive heart and chronic kidney disease with heart failure and stage 1 through stage 4 chronic kidney disease, or unspecified chronic kidney disease; E03.9 Hypothyroidism, unspecified; E78.5 Hyperlipidemia, unspecified; M10.9 Gout, unspecified; K40.20 Bilateral inguinal hernia, without obstruction or gangrene, not specified as recurrent; N18.3 Chronic kidney disease, stage 3 (moderate); F03.90 Unspecified dementia, unspecified severity, without behavioral disturbance, psychotic disturbance, mood disturbance, and anxiety; I48.91 Unspecified atrial fibrillation; E78.00 Pure hypercholesterolemia, unspecified; E86.0 Dehydration; S00.12XA Contusion of left eyelid and periocular area, initial encounter; W18.39XA Other fall on same level, initial encounter; I25.10 Atherosclerotic heart disease of native coronary artery without angina pectoris; R55 Syncope and collapse; I08.3 Combined rheumatic disorders of mitral, aortic and tricuspid valves; Z88.0 Allergy status to penicillin; Z88.2 Allergy status to sulfonamides; Z95.1 Presence of aortocoronary bypass graft; Y93.89 Activity, other specified; Y92.098 Other place in other non-institutional residence as the place of occurrence of the external cause; Y99.8 Other external cause status
CPT/HCPCS: 36415; 36600; 51702; 70450; 70486; 71045; 72125; 72192; 80048; 80053; 81001; 82550; 82805; 83605; 83735; 83880; 84443; 84484; 85025; 85610; 85730; 86141; 86850; 86900; 86901; 87040; 87077; 87186; 93306; 93970; 96374; 97110; 97116; 97163; 97530; G0378; J2405